=== PATIENT | female | born 1935 | race Caucasian/White ===

== ENCOUNTER 2019-07-31 22:11 | Inpatient (IN) ==
[2019-07-31] MEDS ORDERED: ONDANSETRON 4 MG/2 ML VIAL IV ONE (22:39)
[2019-07-31] MEDS ORDERED: LACTATED RINGERS 1,000 ML IV ONE (22:39)
--- NOTE | 2019-07-31 22:39 | Emergency Department Note ---
Abdominal Pain HPI - General Chief Complaint: Abdominal Pain Stated Complaint: suspects bowel obstruction Time Seen by Provider: 07/31/19 22:29 Source: patient, family Mode of arrival: wheelchair - History of Present Illness HPI Narrative: Abdominal pain since about 4 5:00 this afternoon. Associated with 2 episodes of emesis which was green and bilious material. Does tell me that she ate some oatmeal for breakfast, some spaghetti for lunch and both those things stay down. History of bowel obstruction the past. 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 History of Parkinson's. Today he had describes a bandlike sensation across the upper abdomen off and on for the last several hours. MD Complaint: abdominal pain Consistency: intermittent - Related Data Home Medications Medication Instructions Recorded Confirmed Carbidopa-Levo 10-100 mg Odt Q3 07/31/19 Dulcolax Stool Softener 07/31/19 Losartan DAILY 07/31/19 Metoprolol Succinate BID 07/31/19 Oxybutynin DAILY 07/31/19 Trazodone HCl 07/31/19 Allergies Allergy/AdvReac Type Severity Reaction Status Date / Time No Known Drug Allergies Allergy Unverified 07/31/19 22:20 Review of Systems All systems ED: reviewed and negative except as stated. Constitutional: Denies: fever, chills, weakness, weight change Abdominal Pain PMH - Past Medical History Attestation: Yes: The following information was validated with the patient. Medical history: Reports: cancer, hypertension, osteoporosis, valvular heart disease Surgical history ED: Reports: appendectomy, cancer surgery, cholecystectomy Family history: Reports: no significant family history - Social History Smoking status: Never smoker Alcohol use: Reports: None Drug use: Reports: none Physical Exam Limitations: no limitations General appearance: alert, in no apparent distress Head: atraumatic, normocephalic, normal inspection Eye: Present: normal appearance, PERRL, EOMI. Absent: scleral icterus, conjunctival injection ENT: Present: normal exam, normal oropharynx, mucous membranes moist, TM's normal bilaterally, other (edentulous upper and lower) Neck: Present: normal inspection, full ROM, trachea midline. Absent: tenderness Chest: Present: normal inspection, symmetric chest wall rise Respiratory: Present: normal lung sounds bilaterally. Absent: respiratory distress Cardiovascular: Present: regular rate, normal rhythm, systolic murmur Abdominal: Present: soft, hyperactive bowel sounds. Absent: distention, tenderness, guarding, rebound Extremities: Present: normal inspection, full ROM, other (Parkinsonian tremor of the upper extremities). Absent: pretibial edema Back: Absent: CVA tenderness (R), CVA tenderness (L), vertebral tenderness Neurological: Present: alert, oriented X3 Psychiatric: Present: normal affect Skin: Present: warm, dry, normal color Course Vital Signs Temperature 97.9 F 07/31/19 22:12 Pulse Rate 83 07/31/19 22:12 Respiratory Rate 16 07/31/19 22:12 Blood Pressure 173/97 07/31/19 22:12 Pulse Oximetry (%) 95 07/31/19 22:12 Temperature 97.9 F 07/31/19 22:12 Pulse Rate 94 H 08/01/19 02:58 Respiratory Rate 18 08/01/19 02:58 Blood Pressure 179/93 08/01/19 02:58 Pulse Oximetry (%) 95 08/01/19 02:58 Abdominal Pain - MDM Narrative Medical decision making narrative: Patient's labs and x-rays reviewed. The patient was right in the sense that she suspected a bowel obstruction and she actually does have one. She's had multiple previous bowel obstructions with similar sensation. No fever but elevated white blood cell count of. Discussed with Dr. Wade. At this point she will be admitted to the hospital, kept nothing by mouth, NG tube placed in the ED. - Lab Data Lab results reviewed: Yes I reviewed the patient's lab results. Result diagrams: 07/31/19 22:45 07/31/19 22:45 Lab Results 07/31/19 07/31/19 07/31/19 Range/Units 22:45 22:45 22:45 WBC 13.5 H (4.5-11.0) K/mcL RBC 4.07 (4.00-5.20) M/mcL Hgb 12.6 (12.0-15.0) g/dL Hct 38.3 (36.0-48.0) % MCV 93.9 (80.0-100.0) fL MCH 31.0 (26.0-34.0) pg MCHC 33.0 (31.0-36.0) g/dL RDW 12.3 (11.5-14.5) % Plt Count 359 (140-440) K/mcL MPV 7.6 (7.4-10.4) fL Gran % 92.8 H (38.0-78.0) % Lymph % (Auto) 3.3 L (15.5-49.0) % [place] % (Auto) 3.0 (1.0-12.0) % Eos % (Auto) 0.7 (0.0-7.0) % Baso % (Auto) 0.2 (0.0-2.0) % Gran # 12.6 H (1.8-8.0) K/mcL Lymph # (Auto) 0.4 L (1.5-4.8) K/mcL [place] # (Auto) 0.4 (0.1-0.9) K/mcL Eos # (Auto) 0.1 (0.0-0.7) K/mcL Baso # (Auto) 0 (0.0-0.3) K/mcL PT 13.0 (11.9-14.5) sec INR 1.0 (0.9-1.1) Sodium 132 L (133-145) mmol/L Potassium 4.0 (3.3-5.1) mmol/L Chloride 94 L (96-108) mmol/L Carbon Dioxide 24 (22-30) mmol/L Anion Gap 14.0 (8-16) BUN 13 (8-23) mg/dl Creatinine 0.7 (0.6-1.1) mg/dl GFR Calculation 81 Glucose 205 H (70-105) mg/dL Calcium 9.8 (8.6-10.4) mg/dl Total Bilirubin 0.2 (0.0-1.0) mg/dL AST 26 (0-37) U/l ALT 11 (0-40) U/l Alkaline Phosphatase 104 (39-117) U/L Total Protein 7.0 (5.9-8.4) gm/dL Albumin 4.0 (3.2-5.2) gm/dL Globulin 3.0 (2.2-3.7) gm/dL Albumin/Globulin Ratio 1.3 (1.0-2.3) Lipase 23 (7-60) U/L Urine Color Urine Appearance Urine pH (5.0-9.0) Ur Specific [place] (1.000-1.035) Urine Protein (NEG) mg/dL Urine Glucose (UA) (NEG) mg/dL Urine Ketones (NEG) mg/dL Urine Occult Blood (<0.03) mg/dL Urine Nitrate (NEG) Urine Bilirubin (NEG) mg/dL Urine Urobilinogen (NEG) mg/dL Ur Leukocyte Esterase (NEG) /uL 08/01/19 Range/Units 01:00 WBC (4.5-11.0) K/mcL RBC (4.00-5.20) M/mcL Hgb (12.0-15.0) g/dL Hct (36.0-48.0) % MCV (80.0-100.0) fL MCH (26.0-34.0) pg MCHC (31.0-36.0) g/dL RDW (11.5-14.5) % Plt Count (140-440) K/mcL MPV (7.4-10.4) fL Gran % (38.0-78.0) % Lymph % (Auto) (15.5-49.0) % [place] % (Auto) (1.0-12.0) % Eos % (Auto) (0.0-7.0) % Baso % (Auto) (0.0-2.0) % Gran # (1.8-8.0) K/mcL Lymph # (Auto) (1.5-4.8) K/mcL [place] # (Auto) (0.1-0.9) K/mcL Eos # (Auto) (0.0-0.7) K/mcL Baso # (Auto) (0.0-0.3) K/mcL PT (11.9-14.5) sec INR (0.9-1.1) Sodium (133-145) mmol/L Potassium (3.3-5.1) mmol/L Chloride (96-108) mmol/L Carbon Dioxide (22-30) mmol/L Anion Gap (8-16) BUN (8-23) mg/dl Creatinine (0.6-1.1) mg/dl GFR Calculation Glucose (70-105) mg/dL Calcium (8.6-10.4) mg/dl Total Bilirubin (0.0-1.0) mg/dL AST (0-37) U/l ALT (0-40) U/l Alkaline Phosphatase (39-117) U/L Total Protein (5.9-8.4) gm/dL Albumin (3.2-5.2) gm/dL Globulin (2.2-3.7) gm/dL Albumin/Globulin Ratio (1.0-2.3) Lipase (7-60) U/L Urine Color Yellow Urine Appearance Clear Urine pH 6.0 (5.0-9.0) Ur Specific [place] 1.016 (1.000-1.035) Urine Protein Neg (NEG) mg/dL Urine Glucose (UA) Negative (NEG) mg/dL Urine Ketones 5/tr A (NEG) mg/dL Urine Occult Blood Neg (<0.03) mg/dL Urine Nitrate Neg (NEG) Urine Bilirubin Neg (NEG) mg/dL Urine Urobilinogen Neg (NEG) mg/dL Ur Leukocyte Esterase Neg (NEG) /uL - Radiology Data Radiology results reviewed: Yes I reviewed the patient's radiology results. Disposition Pt seen by DRAWING TRACER/PA only: No Clinical Impression: Abdominal pain, Small bowel obstruction due to adhesions Disposition: Xfer As Inpt ([facility]) Condition: Good Referrals: Fernanda Hughes MD [Primary Care Provider] -
[2019-07-31] MEDS ORDERED: ESOMEPRAZOLE 40 MG VIAL IV SCH (22:45)
[2019-07-31 23:42] LABS: Basophils # (Auto) 0 K/mcL (0.0-0.3); Basophils % (Auto) 0.2 % (0.0-2.0); Eosinophils # (Auto) 0.1 K/mcL (0.0-0.7); Eosinophils % (Auto) 0.7 % (0.0-7.0); Granulocytes % (Auto) 92.8 % (38.0-78.0); Hematocrit 38.3 % (36.0-48.0); Hemoglobin 12.6 g/dL (12.0-15.0); Lymphocytes # (Auto) 0.4 K/mcL (1.5-4.8); Lymphocytes % (Auto) 3.3 % (15.5-49.0); Mean Cell Volume 93.9 fL (80.0-100.0); Mean Platelet Volume 7.6 fL (7.4-10.4); Monocytes # (Auto) 0.4 K/mcL (0.1-0.9); Platelet Count 359 K/mcL (140-440); RBC 4.07 M/mcL (4.00-5.20); Red Cell Distribution Width 12.3 % (11.5-14.5); WBC 13.5 K/mcL (4.5-11.0)
[2019-08-01 00:03] LABS: ALT/SGPT 11 U/l (0-40); AST/SGOT 26 U/l (0-37); Albumin/Globulin Ratio 1.3 (1.0-2.3); Alkaline Phosphatase 104 U/L (39-117); Bilirubin,Total 0.2 mg/dL (0.0-1.0); Blood Urea Nitrogen 13 mg/dl (8-23); Calcium 9.8 mg/dl (8.6-10.4); Carbon Dioxide 24 mmol/L (22-30); Chloride 94 mmol/L (96-108); Glomerular Filtration Rate 81; Glucose 205 mg/dL (70-105)
[2019-08-01] MEDS ORDERED: 0.9 % SODIUM CHLORIDE 1,000 ML IV SCH (01:15)
[2019-08-01 01:39] LABS: Appearance,Urine CLEAR; Bilirubin,Urine NEG (NEG); Color,Urine YELLOW; Glucose,Urine (UA) NEGATIVE (NEG); Ketones,Urine 5/TR mg/dL (NEG); Leukocyte Esterase,Urine NEG /uL (NEG); Nitrate,Urine NEG (NEG); Protein,Urine NEG (NEG); Specific Gravity,Urine 1.016 (1.000-1.035); Urine Blood NEG mg/dL (<0.03); Urobilinogen,Urine NEG (NEG)
[2019-08-01] MEDS ORDERED: LIDOCAINE JEL 2% 1 TUBE 5GM TOPICAL ONE (03:47)
[2019-08-01] MEDS ORDERED: NALOXONE HCL 0.4 MG/ML VIAL IV PRN (03:58)
[2019-08-01] MEDS ORDERED: HYDROmorphone 2 MG/ML VIAL IV PRN (04:01)
[2019-08-01] MEDS: 0.45 % SODIUM CHLORIDE 1,000 ML IV SCH ×3 (05:52→18:00)
[2019-08-01] MEDS: ESOMEPRAZOLE 40 MG VIAL IV SCH (08:07)
--- NOTE | 2019-08-01 08:43 | XRay Report ---
HISTORY: Vomiting and bowel obstruction FINDINGS: There are several dilated loops of small intestine in the mid abdomen. There are several air-fluid levels. The stomach is decompressed. The colon is not distended. There are multiple surgical clips in the right side of the pelvis. 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 Moderate arthritis is seen in the left hip. IMPRESSION: Small bowel obstruction Interpreted and Authenticated by: Teddy Baker 08/01/19
--- NOTE | 2019-08-01 08:54 | Cat Scan Report ---
History: Diffuse abdominal pain, vomiting and small bowel obstruction TECHNIQUE: The patient was imaged following oral and intravenous contrast scanning from the diaphragm to the symphysis pubis. Sagittal and coronal reformats were created. The radiation exposure was limited using dose reduction technology. FINDINGS: There are bands of scar or discoid atelectasis in the lung bases. A moderate size hiatus hernia is present. There are three low-attenuation subcapsular lesions in the right lobe of the liver. The largest is seen on axial image #27 and measures 8 x 9 mm. The remainder the liver is normal. The gallbladder is been removed. The bile ducts are nondilated. Spleen is normal size and homogeneous. The pancreas is normal in size and homogeneous without evidence of inflammation. There is a heterogeneous mass in left adrenal which measures 2.3 x 2.5 cm. The right adrenal is normal. Kidneys are normal in size shape and contour.. Measures 1 x 1.8 cm. This is best seen on the coronal reformatted views. There is no retroperitoneal hemorrhage. The oral contrast passed through stomach and small intestine to the proximal ileum. There are multiple dilated loops of small intestine with air-fluid levels. There is an ill-defined transition in the right side of the pelvis. The transition point is located adjacent to numerous surgical clips located along the right lateral pelvic sidewall. The distal ileum is normal in caliber. A mass is not identified. There is no evidence of perforation. There is a large amount liquefied stool in the right side of the colon. The appendix is not seen. A normal amount of solid stool is seen in the transverse descending and sigmoid colon. There is no evidence of diverticulitis. The uterus and ovaries are atrophic. The bladder is moderately distended. There is gas within the lumen of the bladder. Has the patient been recently catheterized? If not, an infection with gas-forming organism should be suspected. There is moderate disc space narrowing degeneration at L2-3 and L3-4 and L4-5. No fractures present. There is no adenopathy ascites or abscess within the abdomen or pelvis. IMPRESSION: Distal small bowel obstruction. This is probably due to adhesions around the surgical clips in the right lateral pelvic sidewall Left adrenal mass Three low-attenuation structures in the liver. These could be cysts with partial volume averaging or solid lesions. Moderate size hiatus hernia Interpreted and Authenticated by: Teddy Baker 08/01/19
--- NOTE | 2019-08-01 16:13 | General Surg History&Physical ---
History of Present Illness Patient information: Note initiated : 08/01/19 at 4:12 pm Service Date, if different from initiated Date: [] Patient: Lucille Ledezma 84 y/o F admitted on 08/01/19 for suspects bowel obstruction. Chief Complaint: [] HPI: Ms. Ledezma is a 84 year old F admitted with partial small bowel obstruction. The patient has a prior history of small bowel obstruction. She had an episode about 1 year ago which was treated at [facility] in [place], [place]. She has a history of having a major operative procedure about 32 years ago for a malignancy. She had postprocedural radiation therapy to her abdominal cavity. She had exploratory laparotomy for adhesion lysis about 10 years ago. Patient states that she has had diffuse abdominal pain with nausea vomiting for the past few hours. She has not been able to have bowel movement or flatus. Abdominal x-rays suggest small bowel obstruction and she is admitted. Review of Systems - Constitutional fatigue, headache(s), malaise, weakness - EENT Nose, mouth and throat: abnormal hearing, vertigo - Cardiovascular dyspnea on exertion, palpatations, no chest pain with activity, no orthopnea - Respiratory pain with cough, no cough, no dyspnea, no dyspnea on exertion, no wheezing - Gastrointestinal abdominal pain, change in bowel habits, constipation, dyspepsia, heartburn, nausea, vomiting - Genitourinary Genitourinary: difficulty urinating, urinary frequency, urinary incontinence - Musculoskeletal abnormal gait, arthralgias, back pain, stiffness, tingling - Integumentary no new lesions, no pruritus, no rash - Neurological abnormal gait, abnormal hearing, dizziness, lack of coordination, tremor(s), vertigo, weakness - Psychiatric anxiety, no confusion, no depression, no paranoia - Endocrine fatigue - Hematologic/Lymphatic no easy bleeding, no easy bruising, no lymphadenopathy - Allergic/Immunologic no tongue swelling, no throat swelling, no uticaria, no wheezing, no lip swelling Past History Past medical history: History Parkinson disease Hypertension Chronic low back pain Past surgical history: 3 Exploratory laparotomy for adhesions Cholecystectomy Appendectomy Back surgery Past family history: Mother age 92 due to natural causes Follow age 69 due to pancreatic cancer Past social history: Denies tobacco use Drinks an occasional glass of wine Denies drug use Medications and Allergies Home Medications Medication Instructions Recorded Confirmed Type Dulcolax Stool Softener 100 mg PO DAILY 07/31/19 08/01/19 History Losartan 100 mg PO DAILY 07/31/19 08/01/19 History Oxybutynin 5 mg PO DAILY 07/31/19 08/01/19 History Trazodone HCl 50 mg PO HS 07/31/19 08/01/19 History Carbidopa/Levodopa [Sinemet 25-100 0.5 tab PO BID@18,21 08/01/19 08/01/19 History mg Tablet] Carbidopa/Levodopa [Sinemet 25-100 0.5 tab PO TID@03,09,15 08/01/19 08/01/19 History mg Tablet] Carbidopa/Levodopa [Sinemet 25-100 1 tab PO BID@06,12 08/01/19 08/01/19 History mg Tablet] Metoprolol Tartrate [Lopressor] 25 mg PO BID 08/01/19 08/01/19 History Allergies Allergy/AdvReac Type Severity Reaction Status Date / Time No Known Drug Allergies Allergy Unverified 07/31/19 22:20 Exam Temp Pulse Resp BP Pulse Ox 98.1 F 88 20 157/79 93 08/01/19 15:56 08/01/19 06:00 08/01/19 15:56 08/01/19 15:56 08/01/19 15:56 - General physical appearance well developed, well nourished, moderate distress, moderate pain, chronically ill - Eyes PERRL, normal ocular movement - ENT normal pinna, normal nares, normal mucosa, no congestion, decreased hearing - Head Head exam IM: Present: atraumatic, normocephalic - Neck no masses, no bruits, trachea midline, no lymphadenopathy, no venous distension - Cardiovascular Cardiovascular exam IM: Present: normal rate and rhythm, RRR, +S1, +S2. Absent: JVD, tachycardia Type of murmur IM: Present: systolic Intensity IM: 3/6 - Respiratory normal expansion, normal respiratory effort, clear to auscultation - Abdomen Abdomen: Present: soft, non tender, bowel sounds Hernia: Present: none - Genitourinary Present: normal external genitalia - Integumentary Present: no rash, no growths, no abnormal pigmentation - Neurologic Present: normal coordination, normal sensation - Musculoskeletal Present: normal gait, normal posture - Psychiatric Present: oriented to time, oriented to person, oriented to place, speech is normal, memory intact Assessment and Plan (1) Small bowel obstruction due to adhesions Schedule small bowel follow-through for today Check CBC and inpatient panel in the a.m. Status: Acute (2) Parkinson's disease Restart oral medication Status: Acute
[2019-08-01] MEDS: CARBIDOPA/LEVODOPA 25/100 TABLET PO SCH ×2 (17:47→21:02)
--- NOTE | 2019-08-01 20:42 | XRay Report ---
HISTORY: Small bowel obstruction FINDINGS: The perpetual inventory clerk film shows residual dilute contrast in the colon following the CT scan done earlier today. Patient was given 16 ounces of dilute Gastrografin contrast. Serial images were obtained following the contrast pass through stomach and small intestine into the colon. The jejunum and proximal ileum are abnormally dilated. However, by one hour and 40 minutes the contrast passed through the terminal ileum into the colon. The distal ileum is normal in caliber. There are multiple surgical clips in the right side of the pelvis. The transition point is not clearly identified but is in the region of the surgical clips. IMPRESSION: Resolving small bowel obstruction Interpreted and Authenticated by: Teddy Baker 08/01/19
[2019-08-01] MEDS: METOPROLOL TARTRATE 25 MG TABLET PO SCH (21:03)
[2019-08-01] MEDS: traZODone HCL 50 MG TABLET PO SCH (21:03)
[2019-08-02] MEDS: 0.45 % SODIUM CHLORIDE 1,000 ML IV SCH ×2 (02:37→14:28)
[2019-08-02] MEDS: CARBIDOPA/LEVODOPA 25/100 TABLET PO SCH ×7 (03:12→22:13)
[2019-08-02 07:05] LABS: Basophils # (Auto) 0 K/mcL (0.0-0.3); Basophils % (Auto) 0.3 % (0.0-2.0); Eosinophils # (Auto) 0.1 K/mcL (0.0-0.7); Eosinophils % (Auto) 1.3 % (0.0-7.0); Granulocytes % (Auto) 79.4 % (38.0-78.0); Hematocrit 31.2 % (36.0-48.0); Hemoglobin 10.1 g/dL (12.0-15.0); Lymphocytes # (Auto) 0.8 K/mcL (1.5-4.8); Lymphocytes % (Auto) 12.3 % (15.5-49.0); Mean Cell Volume 97.4 fL (80.0-100.0); Mean Corpuscular HGB Conc 32.4 g/dL (31.0-36.0); Mean Platelet Volume 7.5 fL (7.4-10.4); Monocytes # (Auto) 0.4 K/mcL (0.1-0.9); Monocytes % (Auto) 6.7 % (1.0-12.0); Platelet Count 282 K/mcL (140-440); WBC 6.3 K/mcL (4.5-11.0)
[2019-08-02 07:50] LABS: ALT/SGPT < 5 U/l (0-40); AST/SGOT 11 U/l (0-37); Albumin 2.9 gm/dL (3.2-5.2); Albumin/Globulin Ratio 1.3 (1.0-2.3); Alkaline Phosphatase 82 U/L (39-117); Bilirubin,Direct < 0.2 mg/dL (0.0-0.3); Bilirubin,Total 0.3 mg/dL (0.0-1.0); Blood Urea Nitrogen 6 mg/dl (8-23); Calcium 8.6 mg/dl (8.6-10.4); Carbon Dioxide 25 mmol/L (22-30); Chloride 108 mmol/L (96-108); Globulin 2.2 gm/dL (2.2-3.7); Glomerular Filtration Rate 90; Glucose 81 mg/dL (70-105); Lactate Dehydrogenase 195 U/L (94-250); Triglycerides 70 mg/dl (<150); Uric Acid 3.7 mg/dL (2.5-8.0)
--- NOTE | 2019-08-02 08:34 | XRay Report ---
CLINICAL INFORMATION: follow up bowel obstruction COMPARISON: Small bowel follow-through study 08/01/2019 FINDINGS: There is only modest residual enteric contrast within the descending and rectosigmoid colon following a small bowel follow-through study one day prior. Still gas pattern is unremarkable. No free air, soft tissue mass, pathologic calcifications or organomegaly. IMPRESSION: Interval resolution of small bowel obstruction pattern. Negative exam Interpreted and Authenticated by: Alan Ribera 08/02/19
[2019-08-02] MEDS ORDERED: LOSARTAN 50 MG TABLET PO SCH (09:00)
[2019-08-02] MEDS: METOPROLOL TARTRATE 25 MG TABLET PO SCH ×2 (09:02→22:12)
[2019-08-02] MEDS: ESOMEPRAZOLE 40 MG VIAL IV SCH (09:03)
[2019-08-02] MEDS ORDERED: FLU VACC QS2019-20(6MOS UP)/PF 60 MCG/0.5 ML SYRINGE IM ONE (10:00)
--- NOTE | 2019-08-02 13:27 | General Surgery Progress Note ---
Subjective Patient reports: feels better, pain is less (4 thank you), flatus, bowel movement, diarrhea, afebrile Narrative: Note initiated : 08/02/19 at 1:25 pm Service Date, if different from initiated Date: [] Patient: Lucille Ledezma 84 y/o F admitted on 08/01/19 for suspects bowel obstruction. Chief Complaint: [Patient states that she feels much better. She had multiple bowel movements throughout the night and her abdominal distention has resolved. She denies nausea. White blood count 6.3, hemoglobin 10.1, hematocrit 31.2, BUN 6, creatinine 0.5. Abdominal x-rays show all of contrast evacuated except for small amount of contrast in the left colon. The small bowel is decompressed.] Objective Temp Pulse Resp BP Pulse Ox 97.4 F 61 17 150/73 98 08/02/19 11:30 08/02/19 11:30 08/02/19 11:30 08/02/19 11:30 08/02/19 11:30 - Additional Data Intake & Output - Last 24 hours: Intake & Output 07/31/19 08/01/19 08/02/19 08/03/19 05:59 05:59 05:59 05:59 Intake Total 1153 2011 650 Balance 1153 2011 650 Weight 118 lb 3.2 oz 116 lb 6.4 oz 116 lb 6.4 oz - General physical appearance well developed, well nourished, no distress, no pain - Eyes PERRL, normal ocular movement - ENT normal pinna, normal nares, normal mucosa, no congestion, decreased hearing - Neck no masses, no bruits, trachea midline, no lymphadenopathy, no venous distension - Respiratory normal expansion, normal respiratory effort, clear to auscultation - Cardiovascular Cardiovascular exam: Present: normal rate and rhythm, RRR, +S1, +S2. Absent: JVD, tachycardia - Abdomen soft, non tender, bowel sounds (present), surgical scars (none), masses (none), distended (no distention noted) - Integumentary no rash, no growths, no abnormal pigmentation - Neurologic normal coordination, normal sensation - Musculoskeletal other (gait is altered by moderate to severe Parkinson's disease) - Psychiatric oriented to time, oriented to person, oriented to place, speech is normal, memory intact - Labs 08/02/19 05:04 08/02/19 05:04 Diabetes panel 08/02/19 Range/Units 05:04 Sodium 142 (133-145) mmol/L Potassium 4.0 (3.3-5.1) mmol/L Chloride 108 (96-108) mmol/L Carbon Dioxide 25 (22-30) mmol/L BUN 6 L (8-23) mg/dl Creatinine 0.5 L (0.6-1.1) mg/dl Glucose 81 (70-105) mg/dL Calcium 8.6 (8.6-10.4) mg/dl AST 11 (0-37) U/l ALT < 5 (0-40) U/l Alkaline Phosphatase 82 (39-117) U/L Total Protein 5.1 L (5.9-8.4) gm/dL Albumin 2.9 L (3.2-5.2) gm/dL Triglycerides 70 (<150) mg/dl Calcium panel 08/02/19 Range/Units 05:04 Calcium 8.6 (8.6-10.4) mg/dl Phosphorus 2.0 L (2.7-4.5) mg/dL Albumin 2.9 L (3.2-5.2) gm/dL Pituitary panel 08/02/19 Range/Units 05:04 Sodium 142 (133-145) mmol/L Potassium 4.0 (3.3-5.1) mmol/L Chloride 108 (96-108) mmol/L Carbon Dioxide 25 (22-30) mmol/L BUN 6 L (8-23) mg/dl Creatinine 0.5 L (0.6-1.1) mg/dl Glucose 81 (70-105) mg/dL Calcium 8.6 (8.6-10.4) mg/dl Adrenal panel 08/02/19 Range/Units 05:04 Sodium 142 (133-145) mmol/L Potassium 4.0 (3.3-5.1) mmol/L Chloride 108 (96-108) mmol/L Carbon Dioxide 25 (22-30) mmol/L BUN 6 L (8-23) mg/dl Creatinine 0.5 L (0.6-1.1) mg/dl Glucose 81 (70-105) mg/dL Calcium 8.6 (8.6-10.4) mg/dl Total Bilirubin 0.3 (0.0-1.0) mg/dL AST 11 (0-37) U/l ALT < 5 (0-40) U/l Alkaline Phosphatase 82 (39-117) U/L Total Protein 5.1 L (5.9-8.4) gm/dL Albumin 2.9 L (3.2-5.2) gm/dL Assessment and Plan (1) Small bowel obstruction due to adhesions Status: Acute Assessment and plan: Advanced soft diet 2 view abdominal x-rays in the morning Current Visit: Yes (2) Parkinson's disease Status: Acute Current Visit: Yes - Time Spent With Patient Total time spent is greater than 50% in coordination of care (as documented) at patient's floor/unit and/or counseling patient:
[2019-08-02] MEDS: traZODone HCL 50 MG TABLET PO SCH ×2 (18:39→22:03)
[2019-08-02] MEDS ORDERED: METOPROLOL TARTRATE 25 MG TABLET PO SCH (21:00)
[2019-08-03] MEDS: CARBIDOPA/LEVODOPA 25/100 TABLET PO SCH ×5 (03:35→14:36)
[2019-08-03 05:48] LABS: Basophils # (Auto) 0 K/mcL (0.0-0.3); Basophils % (Auto) 0.1 % (0.0-2.0); Eosinophils # (Auto) 0.1 K/mcL (0.0-0.7); Eosinophils % (Auto) 1.3 % (0.0-7.0); Granulocytes % (Auto) 79.8 % (38.0-78.0); Hematocrit 31.7 % (36.0-48.0); Hemoglobin 10.4 g/dL (12.0-15.0); Lymphocytes # (Auto) 0.8 K/mcL (1.5-4.8); Lymphocytes % (Auto) 12.1 % (15.5-49.0); Mean Cell Volume 96.7 fL (80.0-100.0); Mean Corpuscular HGB Conc 32.8 g/dL (31.0-36.0); Mean Platelet Volume 7.5 fL (7.4-10.4); Monocytes # (Auto) 0.4 K/mcL (0.1-0.9); Monocytes % (Auto) 6.7 % (1.0-12.0); Platelet Count 269 K/mcL (140-440); RBC 3.28 M/mcL (4.00-5.20); Red Cell Distribution Width 12.9 % (11.5-14.5); WBC 6.6 K/mcL (4.5-11.0)
[2019-08-03 06:19] LABS: ALT/SGPT < 5 U/l (0-40); AST/SGOT 7 U/l (0-37); Albumin 3.2 gm/dL (3.2-5.2); Albumin/Globulin Ratio 1.5 (1.0-2.3); Alkaline Phosphatase 80 U/L (39-117); Bilirubin,Direct < 0.2 mg/dL (0.0-0.3); Bilirubin,Total 0.2 mg/dL (0.0-1.0); Blood Urea Nitrogen 5 mg/dl (8-23); Calcium 9.3 mg/dl (8.6-10.4); Carbon Dioxide 25 mmol/L (22-30); Chloride 108 mmol/L (96-108); Globulin 2.1 gm/dL (2.2-3.7); Glomerular Filtration Rate 90; Glucose 107 mg/dL (70-105); Lactate Dehydrogenase 183 U/L (94-250); Phosphorous 2.1 mg/dL (2.7-4.5); Triglycerides 89 mg/dl (<150); Uric Acid 3.6 mg/dL (2.5-8.0)
[2019-08-03] MEDS: ESOMEPRAZOLE 40 MG VIAL IV SCH (07:31)
[2019-08-03] MEDS ORDERED: NEUTRA PHOS 1 PACKET PO SCH (09:00)
[2019-08-03] MEDS: METOPROLOL TARTRATE 25 MG TABLET PO SCH (09:02)
--- NOTE | 2019-08-03 14:17 | Discharge Summary ---
Providers - Providers Patient information: Note initiated : 08/03/19 at 2:14 pm Service Date, if different from initiated Date: [] Patient: Lucille Ledezma 84 y/o F admitted on 08/01/19 for suspects bowel obstruction. Chief Complaint: [] Date of admission: 08/01/19 Discharge date: 08/03/19 Attending physician: Emerald Wade Hospitalization Hospital Course: 84-year-old female admitted via the emergency room with the 12 hour history of mid abdominal pain followed by multiple episodes of nausea and vomiting. 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 She's had prior episodes of partial small bowel obstruction and has required 1 operative procedure for adhesiolysis in the past. She is also status post appendectomy and cholecystectomy. CT of the abdomen showed dilated small bowel loops with a transition point in the right side of her abdomen but with normal terminal ileum. Patient was admitted. Nasogastric tube was attempted but could not be passed. The following morning after admission she underwent small bowel follow-through. This showed transit through the bowel and 1 hour and 40 minutes. She subsequently had 15 bowel movements during the night. She felt much improved and was started on liquids which she tolerated well. She has been advanced to a soft diet and tolerates it well. She is now asymptomatic. She is stable for discharge home. Discharge diagnosis: recurrent small bowel obstruction Secondary discharge diagnosis: Parkinson's disease History of valvular heart disease Hypertension Reason for admission: abdominal pain with distention , nausea and vomiting Pertinent studies/significant findings: Single-contrast small bowel follow Complications: None Exam Temp Pulse Resp BP Pulse Ox 97.8 F 70 18 145/80 93 08/03/19 11:53 08/03/19 11:53 08/03/19 11:53 08/03/19 11:53 08/03/19 11:53 - General physical appearance well developed, well nourished, no distress, no pain, chronically ill - Eyes PERRL, normal ocular movement - ENT normal pinna, normal nares, normal mucosa, no hearing loss, no congestion - Head Head exam IM: Present: atraumatic, normocephalic - Neck no masses, no bruits, trachea midline, no lymphadenopathy, no venous distension - Cardiovascular Cardiovascular exam IM: Present: normal rate and rhythm, RRR, +S1, +S2, systolic murmur. Absent: JVD, tachycardia Type of murmur IM: Present: systolic Intensity IM: 2/6 - Respiratory normal expansion, normal respiratory effort, clear to percussion, clear to auscultation - Abdomen Abdomen: Present: soft, non tender, bowel sounds (good active bowel sounds), distended ( no distention noted) Hernia: Present: none - Genitourinary Present: normal external genitalia - Integumentary Present: no rash, no growths, no abnormal pigmentation - Neurologic Present: normal sensation, other ( constant pill-rolling tremor exacerbated with activity; hyperreflexia and extremities) - Musculoskeletal Present: other ( to person standby assistance; gait assisted with a walker) - Psychiatric Present: oriented to time, oriented to person, oriented to place, speech is normal, memory intact Discharge Plan - Patient/Caregiver Discharge Instructions Activity: increase activity as tolerated Diet: Regular Diet Additional Instructions: Resume previous medications as before admission - Follow up Plan Follow up with: Fernanda Hughes MD [Primary Care Provider] - Disposition: Home, Self-Care Prognosis: Good Rehab Potential: Good I certify that the patient requires SNF services.: No Overall status at discharge: patient is progressing back to baseline Pending Studies Resuscitation Status Full Code Diet GI Soft/Transitional Start FriAug 02 1242 Carbidopa/Levodopa (Sinemet 25/100) 1 tab PO BID@0600,1200 [facility] Last Admin: 08/03/19 11:57 Dose: 0.5 tab Documented by: [email or web address] Admin: 08/03/19 05:57 Dose: 1 tab Documented by: Admin: 08/02/19 12:17 Dose: 1 tab Documented by: [email or web address] Admin: 08/02/19 07:02 Dose: 1 tab Documented by: [email or web address] Carbidopa/Levodopa (Sinemet 25/100) 0.5 tab PO TID@0300,0900,1500 [facility] Last Admin: 08/03/19 09:03 Dose: 0.5 tab Documented by: [email or web address] Admin: 08/03/19 03:35 Dose: 0.5 tab Documented by: Admin: 08/02/19 15:41 Dose: 0.5 tab Documented by: [email or web address] Admin: 08/02/19 09:03 Dose: 0.5 tab Documented by: Admin: 08/02/19 03:12 Dose: 0.5 tab Documented by: [email or web address] Carbidopa/Levodopa (Sinemet 25/100) 0.5 tab PO BID@1800,2100 [facility] Admin: 08/02/19 22:13 Dose: 0.5 tab Documented by: Admin: 08/02/19 18:11 Dose: 0.5 tab Documented by: Admin: 08/01/19 21:02 Dose: 0.5 tab Documented by: Admin: 08/01/19 17:47 Dose: 0.5 tab Documented by: AMBERLY Esomeprazole Magnesium (Nexium) 40 mg IV QAMAC [facility] Admin: 08/03/19 07:31 Dose: 40 mg Documented by: Admin: 08/02/19 09:03 Dose: 40 mg Documented by: Admin: 08/01/19 08:07 Dose: 40 mg Documented by: [email or web address] Metoprolol Tartrate (Lopressor) 25 mg PO BID [facility] Admin: 08/03/19 09:02 Dose: 25 mg Documented by: Admin: 08/02/19 22:12 Dose: 25 mg Documented by: Admin: 08/02/19 09:02 Dose: 25 mg Documented by: Admin: 08/01/19 21:03 Dose: 25 mg Documented by: [email or web address] Potassium/Phosphorus/Sodium (Neutra Phos) 2 packet PO BID [facility] Admin: 08/03/19 11:03 Dose: 2 packet Documented by: [email or web address] Trazodone HCl (Desyrel) 50 mg PO [facility] Admin: 08/02/19 22:03 Dose: Not Given Documented by: Admin: 08/02/19 18:39 Dose: 50 mg Documented by: Admin: 08/01/19 21:03 Dose: 50 mg Documented by: [email or web address] Shift Summary 08/03/19 04:42 Shift Summary by Deana Snyder Patient alert and oriented x4. Denies any pain. Complained of feeling tired and has not slept the other night. Given sleeping pill early per patient request. Has been sleeping well in between bathroom activity. No complaint of nausea or vomiting this shift. IV on right hand kept saline locked. Up with standby assist, FWW to the bathroom. Patient has history of Parkinson's, has chronic tremors, takes Sinemet pill at different times. Patient had episode of urine incontinence tonight. No BM this shift. Had one at shift change. For Abdominal Xray this AM. SBP 130-160's mmHg. Initialized on 08/03/19 04:42 - END OF NOTE
== END 2019-08-03 14:48 | disposition home or self-care (01) | DRG 390 ==
LOC: ED 22:11 → MEDSUR 08-01 04:55
PROVIDERS: ADMIT Family Medicine Adult Medicine; ATTEND Family Medicine Adult Medicine